=== PATIENT | female | born 1985 | race Caucasian/White ===

== ENCOUNTER 2017-03-12 13:29 | Outpatient (CLI) | payer OTHER ==
[2017-03-13 00:31] LABS: DIRECT BILIRUBIN 0.2 mg/dL (<0.4); TOTAL PROTEIN 7.1 g/dL (6.0-8.5)
== END 2017-03-12 13:30 ==
LOC: LAB 13:29
PROVIDERS: ATTEND Physician Assistant
DX: L70.0 Acne vulgaris (principal); Z79.899 Other long term (current) drug therapy
CPT/HCPCS: 36415; 80076; 82465; 84478

== ENCOUNTER 2017-04-16 13:13 | Outpatient (CLI) | payer OTHER ==
[2017-04-16 23:51] LABS: DIRECT BILIRUBIN <0.2 mg/dL (<0.4); TOTAL PROTEIN 7.4 g/dL (6.0-8.5)
== END 2017-04-16 13:15 ==
LOC: LAB 13:13
PROVIDERS: ATTEND Physician Assistant
DX: L70.0 Acne vulgaris (principal); Z79.899 Other long term (current) drug therapy
CPT/HCPCS: 36415; 80076; 82465; 84478

== ENCOUNTER → 2017-05-21 | Outpatient (CLI) | payer OTHER ==
[2017-05-21 23:32] LABS: DIRECT BILIRUBIN 0.2 mg/dL (<0.4); TOTAL PROTEIN 7.9 g/dL (6.0-8.5)
== END ==
LOC: LAB 13:15
PROVIDERS: ATTEND Physician Assistant
DX: L70.0 Acne vulgaris (principal); Z79.899 Other long term (current) drug therapy
CPT/HCPCS: 36415; 80076; 82465; 84478